=== PATIENT | female | born 1955 | race Two or more races ===

== ENCOUNTER 2023-03-03 09:32 | Emergency (ER) | payer OTHER ==
[~2023-03-03] VITALS: Ht 157.5 cm; Wt 96.2 kg
[2023-03-03] MEDS ORDERED: SYNTHROID75 MCG PO (09:53)
== END 2023-03-03 12:46 | disposition home or self-care (01) ==
LOC: ER 09:32
DX: M25.561 Pain in right knee (principal); Z88.6 Allergy status to analgesic agent; Z91.041 Radiographic dye allergy status; M19.90 Unspecified osteoarthritis, unspecified site; E03.9 Hypothyroidism, unspecified; I73.89 Other specified peripheral vascular diseases